=== PATIENT | male | born 1985 | race Two or more races ===

== ENCOUNTER 2019-02-26 09:54 | Emergency (ER) | payer OTHER ==
[~2019-02-26] VITALS: Ht 182.9 cm; Wt 108.9 kg
[~2019-02-26 09:54] MED LIST: CYCL10TA2 PO; HYDR-3164 PO
[2019-02-26 10:07] VITALS: BP 134/87
[2019-02-26] MEDS ORDERED: CYCL10TA2 PO (10:38)
[2019-02-26] MEDS ORDERED: HYDR-3135 PO (10:38)
[2019-02-26] MEDS ORDERED: KETOROLAC 60 MG/2 ML VIAL. IM ONE (10:45)
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
== END 2019-02-26 10:59 | disposition home or self-care (01) ==
LOC: ER 09:54
DX: G89.29 Other chronic pain (principal); M54.5 Low back pain
CPT/HCPCS: 96372; 99283; J1885

== ENCOUNTER 2020-05-12 19:36 | Emergency (ER) | payer OTHER ==
[~2020-05-12] VITALS: Ht 182.9 cm; Wt 113.6 kg
[~2020-05-12 19:36] MED LIST changes: +HYDR-3135 PO
[2020-05-12 20:02] VITALS: BP 160/90
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
[2020-05-12] MEDS ORDERED: NEOMY/BACITR/POLYMYXIN OINT PACKET. TP ONE (22:15)
[2020-05-12] MEDS ORDERED: CEPH-264 PO (22:36)
[2020-05-12] MEDS ORDERED: HYDR-2761 PO (22:36)
== END 2020-05-12 22:39 | disposition home or self-care (01) ==
LOC: ER 19:36
DX: S60.032A Contusion of left middle finger without damage to nail, initial encounter (principal); R20.2 Paresthesia of skin; G89.29 Other chronic pain; X58.XXXA Exposure to other specified factors, initial encounter; Y93.89 Activity, other specified; Y92.89 Other specified places as the place of occurrence of the external cause; Y99.8 Other external cause status
CPT/HCPCS: 73140; 99283